=== PATIENT | male | born 2000 ===

== ENCOUNTER 2020-01-22 13:01 | Emergency (ER) | payer SELFPAY ==
[2020-01-22 13:13] VITALS: BP 121/79
[2020-01-22] MEDS ORDERED: BALANCED SALT IRRIG (BSS) OPHTH SOLN 15 ML OU ONE (13:17)
[2020-01-22] MEDS ORDERED: TETRACAINE 0.5% OPHTH SOLN 4ML OU ONE (13:17)
[2020-01-22] MEDS ORDERED: ACETAMINOPHEN W/CODEINE 300-30 MG TAB PO ONE (13:17)
[2020-01-22] MEDS ORDERED: IBUPROFEN 600 MG TAB PO ONE (13:17)
[2020-01-22] MEDS ORDERED: DIPHtheria,PERTUSSIS(ACELL),TETANUS VACCINE/PF 0.5 ML VIAL IM ONE (13:19)
--- NOTE | 2020-01-22 13:21 | Emergency Department Report ---
ED Eye Problem HPI - General Chief complaint: Eye Problems Stated complaint: SOMETHING IN EYE Time Seen by Provider: 01/22/20 13:16 Source: patient Mode of arrival: Ambulatory Limitations: No Limitations - History of Present Illness Initial comments: 19-year-old male presents to the emergency room stating that he believes he has a piece of wood in his right eye. Patient states this happened about 24 hours ago while he was at work with [employer]wood. Patient reports pain to his eye discharge decreased vision and feels as if he sees the wood chip. Patient denies any past medical history no allergies to medications takes no medications on a daily basis. Patient is unsure of when his last tetanus. MD chief complaint: eye pain, eye redness, foreign body Onset/Timin -: hour(s) Onset Description: sudden Location: right eye Place: work If Injury: direct trauma Eye Symptoms: burning, redness, pain, foreign body sensation, blurry vision, p hotophobia Severity: severe Severity scale (0 -10): 9 If Pain, Quality: burning Consistency: constant Context: injury - Related Data Patient Tetanus UTD: No Allergies Allergy/AdvReac Type Severity Reaction Status Date / Time No Known Allergies Allergy Unverified 01/22/20 13:13 ED Review of Systems ROS: Stated complaint: SOMETHING IN EYE Other details as noted in HPI Comment: All other systems reviewed and negative Eyes: eye pain, eye discharge, vision change ED Past Medical Hx - Past Medical History Previous Medical History?: No - Surgical History Past Surgical History?: Yes Hx Appendectomy: Yes - Social History Smoking Status: Never Smoker Substance Use Type: None ED Physical Exam - General Limitations: No Limitations General appearance: alert, in no apparent distress - Head Head exam: Present: atraumatic, normocephalic - Expanded Eye Exam Expanded Eyelids: Normal Inspection: Right Pupils: Regular, Round: Right Sclera/Conjunctival: Injection: Right, Foreign Body: Right, Exudate: Right - ENT ENT exam: Present: normal exam, mucous membranes moist - Expanded ENT Exam Expanded Ear exam: Present: normal external inspection - Neck Neck exam: Present: normal inspection - Back Exam Back exam: Present: normal inspection, full ROM - Neurological Exam Neurological exam: Present: alert, oriented X3 - Psychiatric Psychiatric exam: Present: normal affect, normal mood - Skin Skin exam: Present: warm, dry, intact, normal color. Absent: rash ED Course Vital Signs 01/22/20 13:11 Temperature 97.5 F L Pulse Rate 75 Respiratory 18 Rate Blood Pressure 121/79 O2 Sat by Pulse 100 Oximetry ED Medical Decision Making - Medical Decision Making 19-year-old male presents to the emergency room stating that he believes he has a piece of wood in his right eye. Patient states this happened about 24 hours ago while he was at work with [employer]. Patient reports pain to his eye discharge decreased vision and feels as if he sees the wood chip. Patient denies any past medical history no allergies to medications takes no medications on a daily basis. Patient is unsure of when his last tetanus. Patient was given Tylenol 3, ibuprofen fluorescein exam. Tetanus was given. [facility] has accepted patient Dr. Cameron from the ER for traumatic eye injury. [facility] was discussed that he will be transferred to another facility that is better equipped to take care of his diagnoses. Patient was translated through [facility] patient navigator. Critical care attestation.: If time is entered above; I have spent that time in minutes in the direct care of this critically ill patient, excluding procedure time. ED Disposition Clinical Impression: Foreign body of right eye, Infection of right eye Disposition: [id number] ANOTHER TYPE HLTHCARE Is pt being admited?: No Does the pt Need Aspirin: No Condition: Stable Additional Instructions: Patient to be transferred to [place] for further evaluation and treatment.
== END 2020-01-22 19:40 | disposition other institution (70) ==
LOC: ED 13:01
DX: T15.91XA Foreign body on external eye, part unspecified, right eye, initial encounter (principal); Z90.49 Acquired absence of other specified parts of digestive tract; W45.8XXA Other foreign body or object entering through skin, initial encounter; Y93.89 Activity, other specified; Y92.89 Other specified places as the place of occurrence of the external cause; Y99.8 Other external cause status
CPT/HCPCS: 90471; 90715